=== PATIENT | male | born 1990 | race Caucasian/White ===

== ENCOUNTER 2021-02-13 08:13 | Emergency (ER) | payer OTHER ==
[~2021-02-13] VITALS: Ht 177.8 cm; Wt 56.7 kg
--- NOTE | 2021-02-13 08:30 | NUR ---
[id number] HOME, FATHER REQUESTING PSYCH EVAL S/P AGITATION EARLIER. THE PATIENT IS CALM AT THIS TIME. RESPIRATION REGULAR AND UNLABORED. DENIES PAIN. THE PATIENT DENIES SI/HI. WILL CONTINUE TO MONITOR THE PATIENT
[2021-02-13 09:00] LABS: BASOPHILS # (AUTO) 0.1 /CMM (0.0-0.2); BASOPHILS % (AUTO) 0.7 % (0.0-2.0); EOSINOPHILS % (AUTO) 2.3 % (0.0-6.0); HEMATOCRIT 45 % (39-51); HEMOGLOBIN 15.2 g/dL (13.5-17.5); LYMPHOCYTES # (AUTO) 2.2 /CMM (0.8-4.8); LYMPHOCYTES % (AUTO) 22.7 % (20.0-44.0); MEAN CORPUSCULAR HGB CONC 34 g/dl (31.0-36.0); MEAN CORPUSCULAR VOLUME 92 fL (80-96); MONOCYTES # (AUTO) 0.7 /CMM (0.1-1.30); MONOCYTES % (AUTO) 7.4 % (2.0-12.0); NEUTROPHILS # (AUTO) 6.5 /CMM (1.8-8.9); NEUTROPHILS % (AUTO) 66.9 % (43.0-81.0); PLATELET COUNT (AUTO) 219 /CMM (150-450); WHITE BLOOD COUNT (AUTO) 9.7 K/uL (4.3-11.0)
[2021-02-13 09:04] LABS: CALCIUM, SERUM 9.5 mg/dL (8.5-10.1); CARBON DIOXIDE 29 mmol/L (21-32); CHLORIDE 102 mmol/L (98-107); CREATININE 0.9 mg/dL (0.6-1.3); GLUCOSE 100 mg/dL (74-106); POTASSIUM 3.9 mmol/L (3.5-5.1); SODIUM SERUM 141 mmol/L (136-145); UREA NITROGEN, BLOOD 11 mg/dL (7-18)
--- NOTE | 2021-02-13 09:08 | NUR ---
COVIDE SWAB DONE AND SENT TO THE LAB
[2021-02-13 09:10] LABS: ALANINE AMINOTRANSFERASE 24 U/L (12-78); ALBUMIN 4.5 g/dL (3.4-5.0); ALKALINE PHOSPHATASE 76 U/L (46-116); ASPARTATE AMINOTRANSFERASE 18 U/L (15-37); BILIRUBIN,DIRECT 0.1 mg/dL (0.0-0.2); BILIRUBIN,TOTAL 0.4 mg/dL (0.2-1.0); TOTAL PROTEIN, SERUM 8.2 g/dL (6.4-8.2)
[2021-02-13 09:11] LABS: ACETAMINOPHEN 0 ug/ml (10-30); ALCOHOL, BLOOD < 3 mg/dL (0-0)
--- NOTE | 2021-02-13 10:10 | NUR ---
SALES OPERATIONS COORDINATOR TRACY CRAVEN AT BEDSIDE.
--- NOTE | 2021-02-13 10:11 | NUR ---
LAB CALLED PT COVID RESULT NEGATIVE (-)
[2021-02-13 10:23] LABS: BILIRUBIN,URINE Negative (NEGATIVE); COLOR,URINE YELLOW (YELLOW); LEUKOCYTE ESTERASE ,URINE Negative (NEGATIVE); NITRITE, URINE Negative (NEGATIVE); PROTEIN,URINE Negative (NEGATIVE); UGLUCOSE Negative (NEGATIVE); UROBILINOGEN,URINE 0.2 EU/dL (0.2)
--- NOTE | 2021-02-13 10:40 | NUR ---
SS Consult: SS Consult requested for behavioral issues. The pt. is a 30-year old male. SW met with pt. bedside. The pt. is A & O x 2 with labile mood. Pt. is irritable however, pt. is able to be redirected and was compliant with questions. Patients father, Amanuel is at bedside and asked to speak to SW separately. Amanuel stated he brought the pt. in because this pt. has Hx. of mild Autism and this pt. became very upset this morning because Amanuel threw out all te sweets in the house for pt.'s "well-being". Per Amanuel, pt. then became physically and verbally aggressive. Amanuel states he does not know how to help pt. SW validated Amanuel's concerns and provided emotional support. SW explored if pt. has any support services, [facility] is involved. Amanuel stated that from what he know the pt. has not been linked with any mental health services in the community. Amanuel informed SW that he just met his son (this pt.) 4 years ago and was unaware he had another son prior to that. Amanuel also stated that the pt.s mother recently . SW provided mental health resources and spoke to the pt. about interest in mental health resources. Patient stated he is open to seeing a therapist, psychiatrist etc. Pt. denies SI/HI ad denies hallucinations. Pt. has poor insight & poor judgement. Pt.s father Amanuel stated that he has conservatorship over the pt. However, did not have paperwork with him. SW provided the following resources to the pt. and pt.s father who were both agreeable to seek mental health treatment for pt. [facility] (Main office) [address] [place], [place] [address] fax [facility] services: [phone] Counseling--Outpatient [facility] [address], [place] [address] (Specializes in in-depth psychotherapy for emotional distress: anxiety, depression, interpersonal conflicts, life transitions, childhood abuse) [address] [address] (Assist with solving problem marital difficulties, separation & divorce, aging parents, & grief, chronic & terminal illness) [facility] [address] [place] [address] (Deal with loss & grief, anxiety, marital difficulties) Homebound/Mental Health Services [address] [place] [address] (Provide in-home mental services to people who are incapable of leaving their homes) [facility] Elder[facility] Senior Service/Resource Center [address] [place], [place] [phone] [facility] [address] [place] [address] PSYCHIATRIC OUTPATIENT SERVICES [facility] Partial Hospitalization and Intensive Outpatient Program (Managed Care and [place] Only) [address] [facility]. [facility] [address]; [phone] [facility] Partial Hospitalization and Outpatient Program [address] [place] [address]; [phone] [facility] Partial Hospitalization and Outpatient Program [address] [place] [address]; [phone] [facility] [address] [place], [place] [phone] [facility] Partial Hospitalization and Outpatient Grsp[address] [place], [place] ; [phone] ;[phone] [facility] [address] [place] [address] Mental Health Services Treva Winters [address] [place] [address] Services: Outpatient therapy for children, teens, young adults, adults, older adults, and families; Psychiatric services, medication support [place] Crisis and Hotline Telephone Numbers: 24-Hour service unless stated [place] Mental Health/Crisis Line........[phone] Suicide Prevention Center (24 Hours).......[phone] Suicide Prevention Crisis Center.......[phone] (24 Hours) Alcoholics Anonymous (24 Hours)..........[phone] [place] Crisis Hotlines: Alcohol and Drug Helpline - Provides referrals to local facilities where adolescents and adults can seek help. Brief intervention. [facility] Helpline [facility] [place] [facility] Mentally Ill 0-870-210-FBBQ National Youth Crisis Hotline [place] [facility]. Provides free information on specific disorders, referral directory to mental health providers, national directory of local mental health associations (M-F, 9-5 EST) National [place] of Mental Health Information Line: Provide sinformation and literature on mental illness by disorder-for professionals and general public.
--- NOTE | 2021-02-13 10:42 | NUR ---
The patient alert and oriented x4. Denies Si/HI. Respiration regular and unlabored. Denies pain. Denies SOB. Patient discharged to home in stable condition. Written and verbal after care instructions given. Patient verbalizes understanding of instruction. Patient left ER with his father.
[2021-02-13 10:43] VITALS: BP 112/63
== END 2021-02-13 10:43 | disposition home or self-care (01) ==
LOC: ER 08:13
DX: F41.9 Anxiety disorder, unspecified (principal); F84.0 Autistic disorder; F31.9 Bipolar disorder, unspecified; Z88.8 Allergy status to other drugs, medicaments and biological substances
CPT/HCPCS: 36415; 80048-TC; 80076-TC; 85025-TC; C9803; G0480

== ENCOUNTER 2021-04-05 09:09 | Emergency (ER) | payer OTHER ==
[~2021-04-05] VITALS: Ht 182.9 cm; Wt 62.6 kg
--- NOTE | 2021-04-05 09:09 | NUR ---
PT BIBRA 86 FROM HOME C/O BIZARRE BEHAVIOR. PT DAD AT BEDSIDE. PT IS AAOX4, NOT IN RESPIRATORY DISTRESS, V/S STABLE, KEPT RESTED AND COMFORTABLE. WILL CONTINUE TO MONITOR.
--- NOTE | 2021-04-05 09:17 | NUR ---
PT SEEN AND EXAMINED BY .
--- NOTE | 2021-04-05 09:28 | NUR ---
ER PHLEB AT BEDSIDE FOR BLOOD DRAW
[2021-04-05] MEDS ORDERED: OLANZAPINE 5 MG TABLET PO ONE (09:30)
[2021-04-05] MEDS ORDERED: LORAZEPAM 1 MG TABLET PO ONE (09:30)
[2021-04-05] MEDS ORDERED: OLANZAPINE 5 MG TABLET ONE (09:32)
[2021-04-05] MEDS ORDERED: LORAZEPAM 1 MG TABLET ONE (09:32)
[2021-04-05 09:42] LABS: BASOPHILS % (AUTO) 0.4 % (0.0-2.0); EOSINOPHILS % (AUTO) 0.2 % (0.0-6.0); HEMATOCRIT 44 % (39-51); HEMOGLOBIN 15.1 g/dL (13.5-17.5); LYMPHOCYTES # (AUTO) 1.8 K/uL (0.8-4.8); MEAN CORPUSCULAR HGB CONC 35 g/dl (31.0-36.0); MEAN CORPUSCULAR VOLUME 91 fL (80-96); MONOCYTES % (AUTO) 11.6 % (2.0-12.0); NEUTROPHILS # (AUTO) 6.1 K/uL (1.8-8.9); NEUTROPHILS % (AUTO) 67.8 % (43.0-81.0); PLATELET COUNT (AUTO) 208 K/uL (150-450); RED BLOOD CELL COUNT(AUTO) 4.81 MIL/uL (4.5-6.0)
[2021-04-05 09:44] LABS: CARBON DIOXIDE 24 mmol/L (21-32); CHLORIDE 104 mmol/L (98-107); CREATININE 1.1 mg/dL (0.6-1.3); POTASSIUM 3.2 mmol/L (3.5-5.1); SODIUM SERUM 142 mmol/L (136-145); UREA NITROGEN, BLOOD 14 mg/dL (7-18)
[2021-04-05 09:50] LABS: ACETAMINOPHEN 0 ug/ml (10-30); ALANINE AMINOTRANSFERASE 14 U/L (12-78); ALCOHOL, BLOOD < 3 mg/dL (0-0); ALKALINE PHOSPHATASE 74 U/L (46-116); ASPARTATE AMINOTRANSFERASE 18 U/L (15-37); BILIRUBIN,DIRECT 0.2 mg/dL (0.0-0.2); BILIRUBIN,TOTAL 0.8 mg/dL (0.2-1.0); GLUCOSE 126 mg/dL (74-106); TOTAL PROTEIN, SERUM 8.9 g/dL (6.4-8.2)
--- NOTE | 2021-04-05 13:09 | NUR ---
RADHA RN AT BEDSIDE FOR PSYCH EVAL.
--- NOTE | 2021-04-05 19:10 | NUR ---
FATHER LAZ LEFT CONTACT # [phone], WILL FIRE TECHNOLOGY INSTRUCTOR ONCE READY TO BE DISCHARGE.
--- NOTE | 2021-04-05 19:14 | NUR ---
AWAITING SIZE PAINTER. [phone] LAZ
--- NOTE | 2021-04-05 21:30 | NUR ---
ATTEMPTED CALL FOR PT FATHER LAZ, NO ANSWER.
--- NOTE | 2021-04-06 00:56 | NUR ---
FATHER ON THE WAY TO TELEGRAPH EQUIPMENT MAINTAINER SON, ETA 20 MIN
--- NOTE | 2021-04-06 01:24 | NUR ---
FATHER IN THE WAITING ROOM. PT DISCHARGED HOME. LEFT WITH FATHER. AMBULATED OUT OF ED WITH STEADY GAIT.
[2021-04-06 01:25] VITALS: BP 125/72
== END 2021-04-06 01:25 | disposition home or self-care (01) ==
LOC: ER 09:12
DX: R46.1 Bizarre personal appearance (principal); Z88.8 Allergy status to other drugs, medicaments and biological substances
CPT/HCPCS: 36415; 80048-TC; 80076-TC; 85025-TC; G0480

== ENCOUNTER 2021-04-17 16:46 | Emergency (ER) | payer OTHER ==
[~2021-04-17] VITALS: Ht 182.9 cm; Wt 57.6 kg
--- NOTE | 2021-04-17 17:10 | NUR ---
BIB FATHER FOR ANXIETY, INSOMIA X 4 DAYS AND "GETTING AGRESSIVE" TO HIM. THE PATIENT ALERT AND ORIENTED X4. DENIES SI/HI. IN ROOM AIR AND DENIES SOB. RESPIRATION REGULAR AND UNLABORED. WILL CONTINUE TO MONITOR THE PATIENT.
[2021-04-17] MEDS ORDERED: LORAZEPAM 1 MG TABLET PO ONE (17:30)
[2021-04-17] MEDS ORDERED: LORAZEPAM 1 MG TABLET ONE (17:54)
[2021-04-17] MEDS ORDERED: OLANZAPINE 5 MG TABLET PO ONE (18:30)
[2021-04-17] MEDS ORDERED: OLANZAPINE 5 MG TABLET ONE (18:36)
[2021-04-17 18:38] LABS: BASOPHILS % (AUTO) 0.3 % (0.0-2.0); EOSINOPHILS % (AUTO) 1.2 % (0.0-6.0); HEMATOCRIT 41 % (39-51); HEMOGLOBIN 14.1 g/dL (13.5-17.5); LYMPHOCYTES # (AUTO) 2.4 K/uL (0.8-4.8); LYMPHOCYTES % (AUTO) 23.4 % (20.0-44.0); MEAN CORPUSCULAR HGB CONC 35 g/dl (31.0-36.0); MEAN CORPUSCULAR VOLUME 92 fL (80-96); MONOCYTES % (AUTO) 9.5 % (2.0-12.0); NEUTROPHILS # (AUTO) 6.6 K/uL (1.8-8.9); NEUTROPHILS % (AUTO) 65.6 % (43.0-81.0); PLATELET COUNT (AUTO) 214 K/uL (150-450); RED BLOOD CELL COUNT(AUTO) 4.44 MIL/uL (4.5-6.0); WHITE BLOOD COUNT (AUTO) 10.1 K/uL (4.3-11.0)
--- NOTE | 2021-04-17 18:44 | NUR ---
covid swab done and sent to the lab
--- NOTE | 2021-04-17 18:45 | NUR ---
the patient states that he does not have urge to urinate at this time. Po fluids encouraged. Will ask the patient again to give urine specimen.
[2021-04-17 18:46] LABS: CARBON DIOXIDE 30 mmol/L (21-32); CHLORIDE 104 mmol/L (98-107); CREATININE 0.9 mg/dL (0.6-1.3); GLUCOSE 100 mg/dL (74-106); POTASSIUM 3.6 mmol/L (3.5-5.1); SODIUM SERUM 140 mmol/L (136-145); UREA NITROGEN, BLOOD 13 mg/dL (7-18)
[2021-04-17 18:51] LABS: ALANINE AMINOTRANSFERASE 21 U/L (12-78); ALBUMIN 4.4 g/dL (3.4-5.0); ALCOHOL, BLOOD < 3 mg/dL (0-0); ALKALINE PHOSPHATASE 72 U/L (46-116); ASPARTATE AMINOTRANSFERASE 17 U/L (15-37); BILIRUBIN,DIRECT 0.1 mg/dL (0.0-0.2); BILIRUBIN,TOTAL 0.5 mg/dL (0.2-1.0); TOTAL PROTEIN, SERUM 8.3 g/dL (6.4-8.2)
[2021-04-17 19:17] LABS: ACETAMINOPHEN < 2 ug/ml (10-30)
--- NOTE | 2021-04-17 22:01 | NUR ---
PATIENT GIVEN PO FLUIDS. PATIENT NO ABLE TO GIVEN URINE SAMPLE AT THIS TIME. WILL CONTINUE TO MONITOR.
--- NOTE | 2021-04-17 23:30 | NUR ---
CALLED PATIENT FATHER FOR PT UPDATE, NO ANSWER.
--- NOTE | 2021-04-18 | NUR ---
CALLED PATIENT FATHER FOR UPDATE, NO ANSWER.
--- NOTE | 2021-04-18 05:22 | NUR ---
CALL PATIENT FATHER, WILL PICK PT UP CLOSER TO 7AM.
--- NOTE | 2021-04-18 07:32 | NUR ---
PT FEELING MUCH BETTER. FATHER WILL TAKE PATIENT HOME. MEDICALLY CLEARED. DISCHARGE IN STABLE CONDITION.
[2021-04-18 07:33] VITALS: BP 121/60
== END 2021-04-18 07:33 | disposition home or self-care (01) ==
LOC: ER 17:04
DX: F41.9 Anxiety disorder, unspecified (principal); G47.00 Insomnia, unspecified; F84.0 Autistic disorder; F31.9 Bipolar disorder, unspecified; Z20.822 Contact with and (suspected) exposure to COVID-19
CPT/HCPCS: 36415; 80048; 80076; 80143; 80320; 85025; 87426; 99285; C9803; G0480

== ENCOUNTER 2021-04-19 15:24 | Emergency (ER) | payer OTHER ==
[~2021-04-19] VITALS: Ht 182.9 cm; Wt 59.0 kg
[2021-04-19] MEDS ORDERED: diphenhydrAMINE HCL 50 MG/ML VIAL ONE (15:40)
[2021-04-19] MEDS ORDERED: HALOPERIDOL LACTATE INJ 5 MG/ML VIAL ONE (15:40)
[2021-04-19] MEDS ORDERED: diphenhydrAMINE HCL 50 MG/ML VIAL IM ONE (16:00)
[2021-04-19] MEDS ORDERED: HALOPERIDOL LACTATE INJ 5 MG/ML VIAL IM ONE (16:00)
[2021-04-19 16:45] LABS: BASOPHILS # (AUTO) 0.1 K/uL (0.0-0.2); BASOPHILS % (AUTO) 0.5 % (0.0-2.0); EOSINOPHILS % (AUTO) 0.1 % (0.0-6.0); HEMATOCRIT 40 % (39-51); LYMPHOCYTES % (AUTO) 9.5 % (20.0-44.0); MEAN CORPUSCULAR HGB CONC 35 g/dl (31.0-36.0); MEAN CORPUSCULAR VOLUME 91 fL (80-96); MONOCYTES # (AUTO) 0.8 K/uL (0.1-1.30); MONOCYTES % (AUTO) 7.5 % (2.0-12.0); NEUTROPHILS # (AUTO) 8.6 K/uL (1.8-8.9); NEUTROPHILS % (AUTO) 82.4 % (43.0-81.0); PLATELET COUNT (AUTO) 212 K/uL (150-450); RED BLOOD CELL COUNT(AUTO) 4.43 MIL/uL (4.5-6.0); WHITE BLOOD COUNT (AUTO) 10.5 K/uL (4.3-11.0)
[2021-04-19 17:21] LABS: ALANINE AMINOTRANSFERASE 14 U/L (12-78); ALBUMIN 4.8 g/dL (3.4-5.0); ALKALINE PHOSPHATASE 73 U/L (46-116); ASPARTATE AMINOTRANSFERASE 21 U/L (15-37); BILIRUBIN,DIRECT 0.2 mg/dL (0.0-0.2); BILIRUBIN,TOTAL 0.7 mg/dL (0.2-1.0); CALCIUM, SERUM 9.6 mg/dL (8.5-10.1); CARBON DIOXIDE 23 mmol/L (21-32); CHLORIDE 107 mmol/L (98-107); CREATININE 1.1 mg/dL (0.6-1.3); GLUCOSE 113 mg/dL (74-106); POTASSIUM 3.7 mmol/L (3.5-5.1); SODIUM SERUM 145 mmol/L (136-145); TOTAL PROTEIN, SERUM 8.3 g/dL (6.4-8.2); UREA NITROGEN, BLOOD 16 mg/dL (7-18)
[2021-04-19 17:23] LABS: ACETAMINOPHEN < 2 ug/ml (10-30); ALCOHOL, BLOOD < 3 mg/dL (0-0)
[2021-04-19 19:30] VITALS: BP 120/78
== END 2021-04-19 19:29 | disposition home or self-care (01) ==
LOC: ER 15:26
DX: R45.1 Restlessness and agitation (principal); F31.9 Bipolar disorder, unspecified; F84.0 Autistic disorder; Z88.8 Allergy status to other drugs, medicaments and biological substances; R64 Cachexia; Z68.1 Body mass index [BMI] 19.9 or less, adult; Z91.83 Wandering in diseases classified elsewhere
CPT/HCPCS: 36415; 80048; 80076; 80143; 80320; 85025; 96372 ×2; 99285; J1200; J1630; G0480

== ENCOUNTER 2021-06-13 09:07 | Emergency (ER) | payer OTHER ==
[~2021-06-13] VITALS: Ht 182.9 cm; Wt 61.2 kg
[2021-06-13] MEDS ORDERED: LORAZEPAM 1 MG TABLET PO ONE ×2 (09:30→15:00)
[2021-06-13] MEDS ORDERED: LORAZEPAM 1 MG TABLET ONE ×2 (09:33→14:43)
--- NOTE | 2021-06-13 09:36 | NUR ---
The patient is bibra86 home, anxious, hand tremors states coming off of meth. Denies SI/HI. In room air and denies SOB. Respiration regular and unlabored. Will continue to monitor the patient.
[2021-06-13 10:00] LABS: WHITE BLOOD COUNT (AUTO) 10.3 K/uL (4.3-11.0)
[2021-06-13] MEDS ORDERED: IV NS 0.9% 1,000 ML BAG IV ONE (10:00)
[2021-06-13 10:02] LABS: BASOPHILS # (AUTO) 0.1 K/uL (0.0-0.2); BASOPHILS % (AUTO) 0.7 % (0.0-2.0); EOSINOPHILS % (AUTO) 1.6 % (0.0-6.0); HEMATOCRIT 40 % (39-51); HEMOGLOBIN 13.8 g/dL (13.5-17.5); LYMPHOCYTES # (AUTO) 1.7 K/uL (0.8-4.8); LYMPHOCYTES % (AUTO) 16.9 % (20.0-44.0); MEAN CORPUSCULAR HGB CONC 34 g/dl (31.0-36.0); MEAN CORPUSCULAR VOLUME 92 fL (80-96); MONOCYTES # (AUTO) 1.2 K/uL (0.1-1.30); MONOCYTES % (AUTO) 11.3 % (2.0-12.0); NEUTROPHILS # (AUTO) 7.1 K/uL (1.8-8.9); NEUTROPHILS % (AUTO) 69.5 % (43.0-81.0); PLATELET COUNT (AUTO) 241 K/uL (150-450); RED BLOOD CELL COUNT(AUTO) 4.38 MIL/uL (4.5-6.0)
[2021-06-13 10:15] LABS: ALANINE AMINOTRANSFERASE 29 U/L (12-78); ALBUMIN 4.7 g/dL (3.4-5.0); ALKALINE PHOSPHATASE 59 U/L (46-116); ASPARTATE AMINOTRANSFERASE 16 U/L (15-37); BILIRUBIN,DIRECT 0.1 mg/dL (0.0-0.2); BILIRUBIN,TOTAL 0.2 mg/dL (0.2-1.0); CALCIUM, SERUM 9.4 mg/dL (8.5-10.1); CARBON DIOXIDE 30 mmol/L (21-32); CHLORIDE 106 mmol/L (98-107); CREATININE 0.9 mg/dL (0.6-1.3); GLUCOSE 89 mg/dL (74-106); POTASSIUM 4.1 mmol/L (3.5-5.1); SODIUM SERUM 145 mmol/L (136-145); TOTAL PROTEIN, SERUM 8.1 g/dL (6.4-8.2); UREA NITROGEN, BLOOD 19 mg/dL (7-18)
[2021-06-13 10:17] LABS: ALCOHOL, BLOOD < 3 mg/dL (0-0)
--- NOTE | 2021-06-13 10:28 | NUR ---
urine collected and sent to the lab
[2021-06-13 10:45] LABS: BILIRUBIN,URINE Negative (NEGATIVE); COLOR,URINE YELLOW (YELLOW); LEUKOCYTE ESTERASE ,URINE Negative (NEGATIVE); NITRITE, URINE Negative (NEGATIVE); PH,URINE 7.5 (5.0-8.0); PROTEIN,URINE Negative (NEGATIVE); UGLUCOSE Negative (NEGATIVE); UROBILINOGEN,URINE 0.2 EU/dL (0.2)
--- NOTE | 2021-06-13 14:46 | NUR ---
patient is refusing ativan order. states "im just fine."
--- NOTE | 2021-06-13 15:05 | NUR ---
CALLED BRODIE/DAD AT [phone] TO FOR PT UPDATE. PT FATHER WILL BE AT [facility] ER IN 3 HOURS TO CAR MANAGER SON
--- NOTE | 2021-06-13 17:45 | NUR ---
IV removed. Catheter intact and site benign. Pressure and 4x4 applied to site. No bleeding noted.Patient discharged to father in stable condition. Written and verbal after care instructions given. Patient verbalizes understanding of instruction.
[2021-06-13 18:17] VITALS: BP 131/88
== END 2021-06-13 18:17 | disposition home or self-care (01) ==
LOC: ER 09:09
DX: F15.13 Other stimulant abuse with withdrawal (principal); F19.10 Other psychoactive substance abuse, uncomplicated; F84.0 Autistic disorder; R25.1 Tremor, unspecified; Z88.8 Allergy status to other drugs, medicaments and biological substances
CPT/HCPCS: 36415; 80048; 80076; 80307; 80320; 81003; 85025; 96360; 99285; J7030; G0480

== ENCOUNTER 2022-03-03 07:41 | Emergency (ER) | payer OTHER ==
[~2022-03-03] VITALS: Ht 182.9 cm; Wt 68.0 kg
--- NOTE | 2022-03-03 08:18 | NUR ---
PT'S FATHER AT BEDSIDE.
--- NOTE | 2022-03-03 08:36 | NUR ---
DR EASTMAN AT BEDSIDE FOR EVAL
[2022-03-03] MEDS ORDERED: IV NS 0.9% 1,000 ML IV ONE (09:00)
[2022-03-03] MEDS ORDERED: OLANZAPINE 5 MG TABLET PO ONE (09:00)
[2022-03-03] MEDS ORDERED: LORAZEPAM INJ 2 MG/ML VIAL IV ONE (09:00)
[2022-03-03 09:01] LABS: BASOPHILS # (AUTO) 0.1 K/uL (0.0-0.2); BASOPHILS % (AUTO) 0.6 % (0.0-2.0); EOSINOPHILS % (AUTO) 0.1 % (0.0-6.0); HEMATOCRIT 43 % (39-51); HEMOGLOBIN 15.1 g/dL (13.5-17.5); LYMPHOCYTES # (AUTO) 1.4 K/uL (0.8-4.8); LYMPHOCYTES % (AUTO) 12.3 % (20.0-44.0); MEAN CORPUSCULAR HGB CONC 35 g/dl (31.0-36.0); MEAN CORPUSCULAR VOLUME 88 fL (80-96); MONOCYTES # (AUTO) 1.5 K/uL (0.1-1.30); MONOCYTES % (AUTO) 12.7 % (2.0-12.0); NEUTROPHILS # (AUTO) 8.6 K/uL (1.8-8.9); NEUTROPHILS % (AUTO) 74.3 % (43.0-81.0); PLATELET COUNT (AUTO) 239 K/uL (150-450); RED BLOOD CELL COUNT(AUTO) 4.87 MIL/uL (4.5-6.0); WHITE BLOOD COUNT (AUTO) 11.6 K/uL (4.3-11.0)
[2022-03-03 09:16] LABS: ALANINE AMINOTRANSFERASE 51 U/L (12-78); ALBUMIN 4.9 g/dL (3.4-5.0); ALKALINE PHOSPHATASE 96 U/L (46-116); ASPARTATE AMINOTRANSFERASE 91 U/L (15-37); BILIRUBIN,DIRECT 0.3 mg/dL (0.0-0.2); BILIRUBIN,TOTAL 1.5 mg/dL (0.2-1.0); CALCIUM, SERUM 9.6 mg/dL (8.5-10.1); CARBON DIOXIDE 28 mmol/L (21-32); CHLORIDE 102 mmol/L (98-107); CREATININE 0.9 mg/dL (0.6-1.3); GLUCOSE 109 mg/dL (74-106); POTASSIUM 3.7 mmol/L (3.5-5.1); SODIUM SERUM 141 mmol/L (136-145); TOTAL PROTEIN, SERUM 8.8 g/dL (6.4-8.2); UREA NITROGEN, BLOOD 9 mg/dL (7-18)
[2022-03-03 09:20] LABS: ACETAMINOPHEN 0 ug/ml (10-30); ALCOHOL, BLOOD < 3 mg/dL (0-0)
[2022-03-03] MEDS ORDERED: LORAZEPAM INJ 2 MG/ML VIAL ONE (09:39)
[2022-03-03] MEDS ORDERED: OLANZAPINE 5 MG TABLET ONE (09:39)
--- NOTE | 2022-03-03 09:47 | NUR ---
LAC #20 IV LINE
--- NOTE | 2022-03-03 10:05 | NUR ---
PT UNABLE TO PROVIDE URINE AT THIS TIME. URINAL AT BEDSIDE; INFORMED FAMILY.
--- NOTE | 2022-03-03 10:10 | NUR ---
SS consult requested for this 31 year old male patient. The pt. was brought in by patient's father, Ras Ybarra [phone] after the pt.left the house on 03/01/2022 and the father believes pt. used Methamphetamine. 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 SW is familiar with pt. from a previous admission. Pt. has put on some weight. Ras reported that t. returned home 03/02/2022 ad pt. was having some hallucination. The pt. is Alert and oriented x 1 self at thsi time and responding to internal stimuli. The pt. has DD: Autism and also been diagnosed with Bipolar Disorder per Ras. Ras reports that pt. has been sober due to being compliant with "olanzapine 20 mg twice a day for bipolar disorder but has not taken it for the past 2 days". Ras reports that he got upset at the pt. and that triggered the pt. to use Methamphetamine again. Pt. is a poor historian due to Autism and currently intoxicated. DC Plan: Ras states pt. will be returning home [[address] [place] [address]; [phone]] with him. DRE provided addiction resources to Ras for the pt. Ras states he is the pt.'s Conservator. Pt. stated he will call a rehab using resources provided if needed. Per Ras he does not believe the pt. will continue using drugs. Per Ras pt. was stating he regrets using Meth again. DRE also provided pt. with the following resources. [facility] (Main office) [address] [place], [place] [address] fax Autism Society [facility] [address] [place] [address] ADDICTION RESOURCES For Drugs and Alcohol [facility] sober living Referrals For Rehabilitation once sober Address:[address] [place] [address] [facility] [address] [place] [address] Detox/residential [facility] Substance Abuse Helpline ([facility]) Outpatient, residential treatment, recovery support for youth/adults [facility] www.actionfaProtAbounsCiklum [facility] Teen programs for drug/alcohol education and support Ally Corey [place]. Program for adults, sliding scale provides support and education Lary24h00 www.Ideagen.Amicrobe [place]; Detox/residential treatment programs; transition to sober living Cri-Help www.cri-help.org [facility]; Outpatient and residential treatment programs; transition to sober living [facility] TEL: [phone] I-ADARP Inter [place] [facility] Recovery Rell Rivera; Outpatient education and supportive programs for teens and adults [facility] www.oasiswomensreck[facility].org [facility]; Residential treatment and work program for females only [place] [facility] www.[facility].org [place]: Outpatient/residential treatment program for teens and young adults [facility] www.[facility].org [place] Detox, inpatient, outpatient for adults and youth [facility], [facility]. [place]; Outpatient programs and referrals to community residential programs. Alcoholics Anonymous -SFV information and meeting and scheduleswww.aa-intergroup.org Hp-Msfd-Imkeshf https://al-anon.org/ [place] support groups for family of alcoholics. Marijuana Anonymous www.madistrict6.org -SFV listing of meetings Narcotics Anonymous www.na.org SOBER LIVING RESOURCES The [facility] Living [facility] www.soberhouEbuzzing and Teads.net A non-profit agency that provides resources to recovery and sober living homes throughout [place], [place], [place] Mens Sober Living Homes: A Work in Progress, Baldemra [facility] Recovery Advocates, [place] [facility] Juanita Womens Sober Living Homes: [facility] x [phone], [place] [facility] Coed Sober Living Homes: [facility] Counseling--Outpatient [facility] [address] abigail[facility] [facility] [place] [address] (Specializes in in-depth psychotherapy for emotional distress: anxiety, depression, interpersonal conflicts, life transitions, childhood abuse) [facility] [address] [place] [address] (Assist with solving problem marital difficulties, separation & divorce, aging parents, & grief, chronic & terminal illness) [facility] [address] [place] [address] (Deal with loss & grief, anxiety, marital difficulties) Homebound/Mental Health Services [address] [facility] [place], [place] [id number] (Provide in-home mental services to people who are incapable of leaving their homes) [facility] Needs of the Elderly Senior Service/Resource Center [address] [place] [address] [facility] [address] [place] [address] Mental Health Services Treva Winters [address] [place] [address] Services: Outpatient therapy for children, teens, young adults, adults, older adults, and families; Psychiatric services, medication support Psychiatric Outpatient Services [facility] Partial Hospitalization and Intensive Outpatient Program (Managed Care and [place] Only)[address] [facility] [phone] [facility] Partial Hospitalization and Outpatient [address] [place], [place] [phone] [facility] Mental Health Center Gkr[address] Albert[facility]. [address] [place], [place] [phone] [facility] Partial Hospitalization and Outpatient Cxirysk[address]17 [facility] Nicole, [phone] Crisis and Hotline Telephone Numbers 24-Hour service unless stated [place] Crisis Hotlines: [facility] Mental Health/Crisis Line........892.102.2443 Suicide Prevention Center (24 Hours).......[phone] Suicide Prevention Crisis Center.......[phone] (24 Hours) Assaults Against Women Hotline.........928.569.1280 (24 Hours -- [facility]) Women and Children Crisis Senior Living...........[phone] (24 Hours) Child Abuse Hotline............403.126.6730 [facility] Childrens Services [facility] (24 Hours)..........[phone] Alcoholics Anonymous (24 Hours)..........[phone] Cocaine Anonymous (24 Hours)............[phone] Narcotics Anonymous (24 Hours)..........[phone] Roselia Dobbins [facility] [address] [place] [address]
--- NOTE | 2022-03-03 10:40 | NUR ---
URINE SAMPLE COLLECTED AND SENT TO LAB
[2022-03-03 11:45] LABS: BILIRUBIN,URINE SMALL (NEGATIVE); COLOR,URINE DARK YELLOW (YELLOW); LEUKOCYTE ESTERASE ,URINE NEGATIVE (NEGATIVE); NITRITE, URINE NEGATIVE (NEGATIVE); PROTEIN,URINE 100 mg/dl (NEGATIVE); UGLUCOSE NEGATIVE (NEGATIVE)
--- NOTE | 2022-03-03 12:30 | NUR ---
SW ALREADY SPOKE W/ PATIENT AND PT'S FATHER AT BEDSIDE AND PROVIDED W/ RESOURCES.
--- NOTE | 2022-03-03 13:00 | NUR ---
Patient discharged to home in stable condition. Written and verbal after care instructions given. Patient verbalizes understanding of instruction.
[2022-03-03 13:01] VITALS: BP 147/89
[2022-03-03 13:23] LABS: BACTERIA,URINE Rare /HPF (None Seen); WBC,URINE 0-2 /HPF (0-3)
[2022-03-03 13:24] LABS: SQUAMOUS EPITHELIAL CELL,UR Rare /HPF (None Seen)
== END 2022-03-03 13:01 | disposition home or self-care (01) ==
LOC: ER 07:47
DX: F15.129 Other stimulant abuse with intoxication, unspecified (principal); F31.9 Bipolar disorder, unspecified; Z88.8 Allergy status to other drugs, medicaments and biological substances
CPT/HCPCS: 36415; 80048; 80076; 80143; 80307; 80320; 81001; 85025; 96374; 99283; J2060; J7030; G0480

== ENCOUNTER 2024-07-20 23:04 | Emergency (ER) | payer MEDICARE, OTHER ==
[~2024-07-20] VITALS: Ht 180.3 cm; Wt 76.2 kg
[2024-07-20] MEDS ORDERED: DOCU-141 PO (23:59)
[2024-07-20] MEDS ORDERED: POLY17PO4 PO (23:59)
[2024-07-21 00:29] VITALS: BP 167/95; TEMP 98.4; O2SAT 97
== END 2024-07-21 00:30 | disposition home or self-care (01) ==
LOC: ER 23:20
DX: K59.00 Constipation, unspecified (principal); F15.10 Other stimulant abuse, uncomplicated; F20.9 Schizophrenia, unspecified; F84.0 Autistic disorder; Z88.8 Allergy status to other drugs, medicaments and biological substances
CPT/HCPCS: 74018